=== PATIENT | female | born 1980 | race Caucasian/White ===

== ENCOUNTER → 2016-09-27 | Outpatient (CLI) | payer OTHER ==
[2016-09-27 14:29] LABS: CH 26.7; CHCM 31.9; HCT 30.1 % (34.0-46.0); HGB 9.6 gm/dL (11.4-16.0); Hypochromasia Moderate; Large Platelets Flag Slight; MCH 26.7 pg (25.0-35.0); MCHC 31.8 g/dL (31.0-37.0); MCV 84.1 fL (80.0-100.0); Mean Platelet Volume 10.9; Poikilocytosis Slight; RBC 3.58 m/uL (3.80-5.40); RDW 12.9 % (11.5-15.5)
== END | disposition home or self-care (01) ==
LOC: LABWHC1 13:09
PROVIDERS: ATTEND Obstetrics & Gynecology
DX: Z3A.00 Weeks of gestation of pregnancy not specified (principal); Z34.92 Encounter for supervision of normal pregnancy, unspecified, second trimester
CPT/HCPCS: 36415; 82950; 84439; 84443; 85027; 86850

== ENCOUNTER → 2016-10-24 | Outpatient (CLI) | payer OTHER ==
--- NOTE | 2016-10-24 14:47 | US ---
EXAMINATION TYPE: US OB >= 14 wk fetus DATE OF EXAM: 10/24/2016 2:09 PM COMPARISON: prior at [place] for high risk due to pt age 36 CLINICAL HISTORY: 3rd Trimester Large for dates O36.63X0 dr exam pt measures 2 weeks ahead TECHNIQUE: Transabdominal (TA) GESTATIONAL AGE / DATING Physician Established: (32 weeks/2 days) EDC: 12/17/2016 Dates by LMP: (32 weeks/ days) EDC: 12/17/2016 Dates by First Scan: unsure Dates by Current Scan: (34 weeks/6 days) EDC: 11/29/2016 SURVEY IUP: Single PLACENTA: Posterior PREVIA: no DELIA: 18.4 cm Normal CERVICAL LENGTH (transabdominal: norm > 3.0cm): 4.5 cm BIOMETRY PRESENTATION: Vertex LIE: Longitudinal BPD: 8.8 cm 35 weeks / 4 days HC: 30.4 cm 33 weeks / 6 days AC: 31.1 cm 35 weeks / 1 days FL: 6.7 cm 34 weeks / 4 days ESTIMATED WEIGHT IN GRAMS: 2519 grams ESTIMATED WEIGHT IN LBS/OZS: 5 lbs. 9 oz. WEIGHT PERCENTAGE BASED ON ESTABLISHED DATES: 98 % HC/AC: 0.98 Normal FL/AC: 22 Normal HEART RATE: 158 bpm RHYTHM: Normal TECHNOLOGIST IMPRESSION: viable IUP , age 2 weeks ahead Four Chamber Heart Outflow tracts:? LVOT/RVOT Stomach Situs Nose / Lips Diaphragm Kidneys (bilateral) Bladder Cord Insert Three Vessel Cord Longitudinal Spine Transverse Spine Arms (bilateral) Legs (bilateral) ANATOMY NOT SEEN: ANATOMY SEEN (within normal limits): * Lateral Vent (< 1 cm) * Cisterna Magna (< 1.1 cm) * Nuchal Fold (< 0.6 cm) * Cerebellum (varies with age) Choroid Plexus (bilateral) Midline Falx Cavus Septi Pellucidi IMPRESSION: [place] fetus present in a vertex lie with a gestational age of 34 weeks 6 days +/- 3 weeks. This i s discordant with the patient's last menstrual cycle by 2 weeks. Estimated date of confinement based on this examination is 11/29/2016. Please note that the morphologic examination is limited.
== END | disposition home or self-care (01) ==
LOC: RADUSWWP 13:23
PROVIDERS: ATTEND Obstetrics & Gynecology
DX: O36.63X0 Maternal care for excessive fetal growth, third trimester, not applicable or unspecified (principal); Z3A.34 34 weeks gestation of pregnancy
CPT/HCPCS: 76811

== ENCOUNTER → 2016-11-19 | Outpatient (CLI) | payer OTHER ==
--- NOTE | 2016-11-19 15:41 | US ---
EXAMINATION TYPE: US OB anatomy transabd DATE OF EXAM: 11/19/2016 2:12 PM COMPARISON: US on PACS HISTORY: 36-year-old female LGA TECHNIQUE: Transabdominal (TA) EXAM MEASUREMENTS: GESTATIONAL AGE / DATING Physician Established: (36 weeks/0 days) EDC: 12/17/2016 Dates by LMP: (36 weeks/0 days) EDC: 12/17/2016 Dates by First Scan: (38 weeks/4 days) EDC: 11/29/2016 Dates by Current Scan for: (39 weeks/2 days) EDC: 11/24/2016 SURVEY IUP: Single PLACENTA: Posterior PREVIA: No previa DELIA: 12.0 cm Normal CERVICAL LENGTH (transabdominal: norm > 3.0cm): 4.3 cm BIOMETRY PRESENTATION: Vertex BPD: 9.5 cm 38 weeks / 6 days HC: 33.7 cm 38 weeks / 5 days AC: 36.8 cm 40 weeks / 6 days FL: 7.5 cm 38 weeks / 3 days ESTIMATED WEIGHT IN GRAMS: 3877 grams ESTIMATED WEIGHT IN LBS/OZS: 8 lbs. 9 oz. WEIGHT PERCENTAGE BASED ON ESTABLISHED DATE: 98 % (vs 98% on prior exam) HC/AC: 0.92 (0.93 - 1.11) FL/AC: 20% HEART RATE: 138 bpm RHYTHM: Normal ANATOMY SEEN (within normal limits): Four Chamber Heart Stomach Situs Nose / Lips Diaphragm Kidneys (bilateral) Bladder Three Vessel Cord ANATOMY NOT SEEN or SUBOPTIMALLY VISUALIZED (due to crowding): Lateral Vent (< 1 cm) Cisterna Magna (< 1.1 cm) cm Cerebellum (varies with age) cm Choroid Plexus (bilateral) Midline Falx Cavus Septi Pellucidi Cord Insert Arms (bilateral) Legs (bilateral) Outflow tracts: LVOT/RVOT Longitudinal Spine Transverse Spine TECHNOLOGIST NOTES: Kirstie SIBLEY at [facility] called with results of baby measuring 39 weeks 2 days. Head s tructures not seen due to head being very low, arms and legs not seen due to crowding. IMPRESSION: 1. Single live intrauterine with estimated gestational age of 36 weeks 0 days by LMP. Curre nt ultrasound biometry remains large (39 weeks 2 days) placing the child at the 98th percentile for w eight. 2. Five days more growth than expected from 10/24/2016 remains within the expected range of error. Pre vious percentile was 98% as well. 3. Continued follow-up as indicated for possible early macrosomia.
== END | disposition home or self-care (01) ==
LOC: RADUSWWP 13:31
PROVIDERS: ATTEND Obstetrics & Gynecology
DX: O36.63X0 Maternal care for excessive fetal growth, third trimester, not applicable or unspecified (principal); Z3A.36 36 weeks gestation of pregnancy
CPT/HCPCS: 76811

== ENCOUNTER 2016-12-04 09:51 | Inpatient (IN) | payer OTHER ==
--- NOTE | 2016-12-03 18:16 | P.HPOB ---
History of Present Illness H&P Date: 12/03/16 Chief Complaint: Scheduled section, family planning This is a 36-year-old female 4 para 3 with an estimated date of confinement of 12/11/2016 based on first trimester ultrasound, estimated gestational age of 39-0/7 weeks, who presents to labor and delivery for primary section with bilateral partial salpingectomy secondary to macrosomia a greater than 95th percentile. Her last ultrasound at approximately 37 weeks gave an estimated weight of 8 lbs. 9 oz. which was greater than 95th percentile. All of her other children were in the 8 pound range at . She does admit to good movement and has been feeling frequent contractions. She does complain of pelvic pressure. labs: HIV-nonreactive Random glucose-82 Hepatitis B surface antigen-negative Hemoglobin-12.6 Syphilis antibody-negative Rubella-nonimmune Blood type-O- Antibody screen-negative RhoGAM was given at 30 weeks. GC/chlamydia-negative Gary screen-within normal limits One hour Glucola-122 Group B streptococcus-negative Obstetrical history: . History of 3 vaginal deliveries. Gynecologic history: No history of sexual transmitted diseases. Social history: She is . She is not involved with the father of the baby. 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 Review of Systems Gastrointestinal: Reports abdominal pain (Irregular contractions) Genitourinary: Reports pelvic pain, Reports Past Medical History Past Medical History: Thyroid Disorder (Hypothyroidism) Additional Past Medical History / Comment(s): Fibromyalgia, history of endometriosis Additional Past Surgical History / Comment(s): Laparoscopy with ablation of endometriosis, facial surgery Past Psychological History: No Psychological Hx Reported Smoking Status: Never smoker Past Alcohol Use History: None Reported Past Drug Use History: None Reported - Past Family History Father Family Medical History: Cancer (Brain cancer, melanoma), Hypertension Medications and Allergies Home Medications Medication Instructions Recorded Confirmed Type Levothyroxine Sodium [Synthroid] 50 mcg PO DAILY 12/03/16 12/03/16 History Pnv with Ca,No.72/Iron/FA 1 each PO 12/03/16 History [ Plus Tablet] Allergies Allergy/AdvReac Type Severity Reaction Status Date / Time acetaminophen AdvReac Rash/Hives Verified 12/03/16 18:12 [From Darvocet-N 100] Penicillins AdvReac Rash/Hives Verified 12/03/16 18:12 povidone-iodine AdvReac Rash/Hives Verified 12/03/16 18:12 [From Betadine] propoxyphene AdvReac Rash/Hives Verified 12/03/16 18:12 [From Darvocet-N 100] soap [From Betadine] AdvReac Rash/Hives Verified 12/03/16 18:12 Exam Osteopathic Statement: *. No significant issues noted on an osteopathic structural exam other than those noted in the History and Physical/Consult. HEENT: Within normal limits Heart: Regular rate and rhythm Lungs: Clear to auscultation bilaterally Abdomen: with fundal height of 40 cm heart tones: 150s by Doppler Cervix exam: 3 cm/70%/-1 station Extremities: Negative Homans Assessment and Plan (1) 39 weeks gestation of Status: Acute (2) macrosomia during in third trimester Status: Acute (3) Family planning Status: Acute Plan: Proceed with primary low transverse section with bilateral partial salpingectomy. I have discussed the risks, benefits, and alternative therapies for the above- mentioned procedure and for both sedation/anesthesia as well as necessary blood products administration, if indicated, as they pertain to this patient. The patient has indicated her understanding and acceptance of the risks and procedures discussed.
[2016-12-04] MEDS ORDERED: CLINDAMYCIN 600 MG in DEXTROSE 5% IN WATER 50 ML IVPB STA ×2 (10:09)
[2016-12-04] MEDS ORDERED: LIDOCAINE 1% 20 ML VIAL (10MG/ML) FOR IV START INTRADERMA PRN (10:09)
[2016-12-04] MEDS ORDERED: CITRIC ACID-SODIUM CITRATE 15 ML CUP PO ONE (10:09)
[2016-12-04] MEDS ORDERED: LACTATED RINGERS 1,000 ML IV ONE (10:09)
[2016-12-04 11:12] VITALS: BMI 27.2
[2016-12-04 11:14] LABS: Basophils % (A) 0 %; CH 22.1; CHCM 30.1; Eosinophils # (A) 0.1 k/uL (0-0.7); Eosinophils % (A) 1 %; HDW 3.99; HGB 9.4 gm/dL (11.4-16.0); Hypochromasia Marked; Large Platelets Flag Moderate; Luc # (Auto) 0.22; Luc % (Auto) 3; Lymphocytes # (A) 1.3 k/uL (1.0-4.8); Lymphocytes % (A) 20 %; MCH 23.1 pg (25.0-35.0); MCHC 31.2 g/dL (31.0-37.0); Mean Platelet Volume 11.3; Microcytosis Slight; Monocytes # (A) 0.4 k/uL (0-1.0); Monocytes % (A) 6 %; Neutrophils # (A) 4.5 k/uL (1.3-7.7); Neutrophils % (A) 69 %; Poikilocytosis Slight; RBC 4.06 m/uL (3.80-5.40); RDW 15.6 % (11.5-15.5); WBC 6.5 k/uL (3.8-10.6); WBC (Perox) 6.63
[2016-12-04 11:20] LABS: MCV 73.8 fL (80.0-100.0)
[2016-12-04 11:51] LABS: Large Platelets Present; Manual Review Performed
[2016-12-04 11:52] LABS: Polychromasia Present
[2016-12-04] MEDS ORDERED: KETOROLAC 30 MG/ML 1 ML VIAL ONE (12:16)
[2016-12-04] MEDS ORDERED: MORPHINE SULFATE (PF) 0.3 MG/0.3 ML SYR ONE (12:16)
[2016-12-04] MEDS ORDERED: OXYTOCIN 10 UNIT/ML 1 ML VIAL IM ONE (12:16)
[2016-12-04] MEDS ORDERED: ePHEDrine 50 MG/ML 1 ML AMP ONE (12:16)
[2016-12-04] MEDS ORDERED: NALBUPHINE 10 MG/ML AMPUL ONE (12:16)
[2016-12-04] MEDS ORDERED: ONDANSETRON 4 MG/2 ML VIAL ONE (12:16)
[2016-12-04] MEDS ORDERED: MORPHINE SULFATE 4 MG/ML SYRINGE IVP PRN (12:47)
[2016-12-04] MEDS ORDERED: ONDANSETRON 4 MG/2 ML VIAL IVP PRN (12:47)
[2016-12-04] MEDS ORDERED: diphenhydrAMINE 50 MG/ML 1 ML VIAL IVP PRN ×3 (12:47→13:54)
[2016-12-04] MEDS ORDERED: NALOXONE 0.4 MG/ML 1 ML VIAL IV PRN (12:47)
--- NOTE | 2016-12-04 13:14 | P.OP ---
Date of Procedure: 12/04/16 Preoperative Diagnosis: 1. Intrauterine at 39-0/7 weeks. 2. macrosomia. 3. Family-planning. Postoperative Diagnosis: Same Procedure(s) Performed: Primary low transverse section with bilateral partial salpingectomy Anesthesia: spinal (Duramorph) Surgeon: Nazia Mahmood [employer] #1: Lucila Helm Estimated Blood Loss (ml): 600 Pathology: other (Placenta, portions of right and left fallopian tubes) Condition: stable Disposition: floor Indications for Procedure: This is a 36-year-old female 4 para 3 at 39-0/7 weeks who presents for scheduled primary section secondary to macrosomia and bilateral partial salpingectomy for family planning. Please see history and physical for details of admission. Operative Findings: A viable female is noted in the vertex presentation with scores of 9 at 1 minute and 9 at 5 minutes and weight of 9 lbs. 14 oz. Normal uterus tubes and ovaries are noted. Description of Procedure: The patient is taken to the operating room where she is placed in the dorsal supine position with leftward tilt after spinal Duramorph anesthesia is given. She is prepped and draped in the normal sterile fashion. Skin was tested and found to be adequately anesthetized. A Pfannenstiel skin incision was made with a scalpel. A second knife was used to carry the incision down to the underlying layer of fascia. The fascia was nicked in the midline with a scalpel and then extended laterally bilaterally with Ballesteros scissors. The anterior lip of the fascia was grasped with 2 Leroy clamps and then dissected off the underlying rectus muscle in the midline with Ballesteros scissors. The inferior aspect of the fascial incision was grasped with 2 Leroy clamps and dissected off the underlying rectus muscle and the midline with Ballesteros scissors. Next the peritoneum layer was tented up with 2 hemostats and then entered sharply with the scalpel. The incision is extended superiorly and inferiorly with Metzenbaum scissors. Next a DeLee retractor is placed. The vesicouterine peritoneum is entered sharply with Metzenbaum scissors and extended laterally bilaterally with Metzenbaum scissors and then the bladder flap is pushed inferiorly. The lower uterine segment is incised in transverse fashion with the scalpel and then bluntly entered with a hemostat. Clear fluid is noted. The incision was then extended laterally bilaterally with 2 fingers. Next the 's head is delivered through the incision. Nose and mouth are bulb suctioned. The remainder of the infant is easily delivered and placed on mother 's abdomen. Cord is clamped and cut. Infant is taken to warmer by nursing staff. Cord blood is obtained. Uterine fundus is gently massaged and placenta is delivered manually. Uterus is exteriorized and cleared of all clots and debris. Uterine incision is closed with 0 Vicryl suture in a running locked fashion. A second layer of 0 Vicryl suture is used in a running fashion for hemostasis. Once adequate hemostasis as assured, the vesicouterine peritoneum is reapproximated with 2-0 Vicryl suture in a running fashion. Attention is turned to the tubes. The right fallopian tube was grasped in the midportion with a hemostat. Mesosalpinx is entered with Bovie cautery. Next 0 Vicryl suture is tied to tams around both the proximal and distal portion of the tube. The knuckle of the tube was then removed with Metzenbaum scissors. The ends of the tube are cauterized with Bovie cautery. Excellent hemostasis is noted. The same procedure is carried out on the left fallopian tube. Posterior cul-de- sac is suctioned of all clots and debris. Uterus is returned to the abdomen. Incision is noted to be hemostatic as well as the tubal ends. Peritoneal layer is closed with 0 Vicryl suture in a running fashion. Muscle layer is reapproximated with 0 Vicryl suture in interrupted fashion. Fascia layer is then closed with 0 PDS suture with 2 sutures meeting in the midline and the knots buried in either side and in the midline. The subcutaneous tissue was then closed with 2-0 Vicryl suture. Skin layer was then closed with armani. All sponge and needle counts are correct. The patient is taken to recovery room in stable condition.
[2016-12-04] MEDS ORDERED: ACETAMINOPHEN TAB 325 MG TAB PO PRN (13:54)
[2016-12-04] MEDS ORDERED: SIMETHICONE 80 MG CHEWABLE PO PRN (13:54)
[2016-12-04] MEDS ORDERED: diphenhydrAMINE 50 MG CAP PO PRN (13:54)
[2016-12-04] MEDS ORDERED: METOCLOPRAMIDE 5 MG/ML 2 ML VIAL IVP PRN (13:54)
[2016-12-04] MEDS ORDERED: diphenhydrAMINE 25 MG CAP PO PRN (13:54)
[2016-12-04] MEDS ORDERED: Acetaminophen-Codeine 300-30mg TAB PO PRN (13:54)
[2016-12-04] MEDS ORDERED: OXYTOCIN 30 UNITS/500 ML NS 30 UNIT in SALINE 1 500ML.BAG IV SCH (13:54)
[2016-12-04] MEDS ORDERED: ZOLPIDEM 5 MG TAB PO PRN (13:54)
[2016-12-04] MEDS: KETOROLAC 30 MG/ML 1 ML VIAL IVP PRN ×2 (17:56→23:54)
[2016-12-04] MEDS: LACTATED RINGERS 1,000 ML IV SCH ×2 (17:58→21:21)
[2016-12-04] MEDS: SENNOSIDES-DOCUSATE SODIUM 1 EACH TAB PO SCH (21:21)
[2016-12-05] MEDS: KETOROLAC 30 MG/ML 1 ML VIAL IVP PRN ×2 (06:16→12:41)
[2016-12-05 06:52] LABS: Basophils % (A) 0 %; CH 21.9; CHCM 29.5; Eosinophils # (A) 0.1 k/uL (0-0.7); Eosinophils % (A) 1 %; HCT 26.2 % (34.0-46.0); HGB 8.3 gm/dL (11.4-16.0); Hypochromasia Marked; Luc # (Auto) 0.18; Luc % (Auto) 2; Lymphocytes % (A) 13 %; MCH 23.7 pg (25.0-35.0); MCHC 31.7 g/dL (31.0-37.0); MCV 74.8 fL (80.0-100.0); Mean Platelet Volume 10.3; Microcytosis Slight; Monocytes # (A) 0.5 k/uL (0-1.0); Monocytes % (A) 6 %; Neutrophils # (A) 6.3 k/uL (1.3-7.7); Neutrophils % (A) 78 %; Poikilocytosis Slight; RBC 3.51 m/uL (3.80-5.40); RDW 15.7 % (11.5-15.5); WBC (Perox) 8.61
--- NOTE | 2016-12-05 08:19 | P.PN ---
Subjective status post spinal duramorph doing ok; no neuro deficits; no headache Objective - Vital Signs Vital signs: Vital Signs Temp 98.1 F 12/05/16 04:00 Pulse 88 12/05/16 04:00 Resp 15 12/05/16 06:00 BP 120/73 12/05/16 04:00 Pulse Ox 98 12/05/16 06:00 Intake & Output 12/04/16 12/05/16 12/05/16 18:59 06:59 18:59 Intake Total 2500 1000 Output Total 550 1600 Balance 1950 -600 Weight 86.183 kg Intake: IV 2500 Lactated Ringers 1,000 ml 2500 @ 125 mls/hr IV .Q8H IJN Rx#:[id number] Intake, IV Titration 1000 Amount Lactated Ringers 1,000 ml 1000 @ 125 mls/hr IV .Q8H JIN Rx#:[id number] Output: Urine 550 1600 Uretheral (Valentino) 300 Other: Voiding Method Indwelling Catheter # Voids 1 - Labs CBC & Chem 7: 12/05/16 06:38 Labs: Abnormal Lab Results - Last 24 Hours (Table) 12/04/16 12/05/16 Range/Units 10:46 06:38 RBC 3.51 L (3.80-5.40) m/uL Hgb 9.4 L 8.3 L (11.4-16.0) gm/dL Hct 30.0 L 26.2 L (34.0-46.0) % MCV 73.8 L D 74.8 L (80.0-100.0) fL MCH 23.1 L 23.7 L (25.0-35.0) pg RDW 15.6 H 15.7 H (11.5-15.5) % Plt Count 113 L (150-450) k/uL
[2016-12-05] MEDS: SENNOSIDES-DOCUSATE SODIUM 1 EACH TAB PO SCH ×2 (08:21→22:10)
--- NOTE | 2016-12-05 08:43 | P.PNOBGPC ---
Subjective - Subjective Principal diagnosis: Status post primary section with tubal ligation POD #1 Interval history: Patient is doing well. She is ambulating. She is passing flatus but no bowel movement yet. She is tolerating regular diet. Pain is fairly well controlled at this point. Lochia is decreasing. Patient reports: Reports appetite normal, Reports voiding normally, Reports pain well controlled, Reports ambulating normally : doing well (Baby is with adoptive parents) Objective - Vital Signs Latest vital signs: Vital Signs Temp Pulse Resp BP Pulse Ox 12/05/16 06:00 15 98 12/05/16 04:00 98.1 F 88 15 120/73 97 12/05/16 02:00 16 98 12/05/16 00:00 98.1 F 85 15 121/76 97 12/04/16 22:00 15 98 12/04/16 20:00 98 F 91 15 127/67 98 12/04/16 17:47 98 12/04/16 17:00 16 98 12/04/16 16:00 97.6 F 81 14 130/87 12/04/16 15:13 90 16 115/75 12/04/16 14:43 82 16 117/82 12/04/16 14:13 80 14 115/74 12/04/16 13:58 89 14 114/70 12/04/16 13:41 82 14 114/70 12/04/16 13:25 85 16 109/61 96 12/04/16 13:13 96.7 F L 80 16 103/56 98 12/04/16 10:05 97.7 F 88 14 122/75 Intake and Output 12/04/16 12/05/16 12/05/16 22:59 06:59 14:59 Intake Total 2500 1000 Output Total 850 1300 Balance 1650 -300 Intake: IV 2500 Lactated Ringers 1,000 ml 2500 @ 125 mls/hr IV .Q8H JIN Rx#:[id number] Intake, IV Titration 1000 Amount Lactated Ringers 1,000 ml 1000 @ 125 mls/hr IV .Q8H JIN Rx#:[id number] Output: Urine 850 1300 Uretheral (Valentino) 300 Other: Voiding Method Indwelling Catheter # Voids 1 - Exam Extremities: Present: normal. Absent: tenderness Abdomen: Present: normal appearance, soft (Positive bowel sounds 4). Absent: distention, tenderness Incision: Present: normal, dry, intact Uterus: Present: normal, firm. Absent: tenderness - Labs Labs: Abnormal Lab Results - Last 24 Hours (Table) 12/04/16 12/05/16 Range/Units 10:46 06:38 RBC 3.51 L (3.80-5.40) m/uL Hgb 9.4 L 8.3 L (11.4-16.0) gm/dL Hct 30.0 L 26.2 L (34.0-46.0) % MCV 73.8 L D 74.8 L (80.0-100.0) fL MCH 23.1 L 23.7 L (25.0-35.0) pg RDW 15.6 H 15.7 H (11.5-15.5) % Plt Count 113 L (150-450) k/uL Assessment and Plan (1) 39 weeks gestation of Narrative/Plan: Impression is status post primary section with bilateral partial salpingectomy postoperative day #1. Plan is to continue with postoperative care today. We'll switch to oral pain medications later today. Current Visit: Yes Status: Acute Code(s): Z3A.39 - 39 WEEKS GESTATION OF SNOMED Code(s): 14037039 (2) macrosomia during in third trimester Current Visit: Yes Status: Acute Code(s): O36.63X0 - MATERNAL CARE FOR EXCESS GROWTH, THIRD TRIMESTER, UNSP SNOMED Code(s): 267765836 (3) Family planning Current Visit: Yes Status: Acute Code(s): Z30.09 - ENCOUNTER FOR OTH GENERAL CNSL AND ADVICE ON CONTRACEPTION SNOMED Code(s): 02705411
[2016-12-05] MEDS: Acetaminophen-Codeine 300-30mg TAB PO PRN ×3 (09:23→22:11)
[2016-12-05] MEDS: IBUPROFEN 600 MG TAB PO PRN (19:04)
[2016-12-05] MEDS: LEVOTHYROXINE 50 MCG TAB PO SCH (19:05)
[2016-12-06] MEDS: IBUPROFEN 600 MG TAB PO PRN ×3 (01:04→18:06)
[2016-12-06] MEDS: Acetaminophen-Codeine 300-30mg TAB PO PRN ×3 (04:16→21:40)
[2016-12-06] MEDS: LEVOTHYROXINE 50 MCG TAB PO SCH (07:48)
[2016-12-06] MEDS: SENNOSIDES-DOCUSATE SODIUM 1 EACH TAB PO SCH ×2 (07:49→23:56)
--- NOTE | 2016-12-06 08:30 | P.PNOBGPC ---
Subjective - Subjective Principal diagnosis: Status post with tubal postoperative day #2 Interval history: Patient is doing okay. She is having a little more pain today than she was yesterday. She is passing flatus but no bowel movement yet. She is ambulatory without difficulty. Lochia is decreasing. Patient reports: Reports appetite normal, Reports voiding normally, Reports pain well controlled, Reports ambulating normally : doing well (With adoptive parents) Objective - Vital Signs Latest vital signs: Vital Signs Temp Pulse Resp BP Pulse Ox 12/05/16 16:00 98.3 F 88 16 113/67 12/05/16 12:00 99 12/05/16 09:00 98.4 F 88 16 116/64 Intake and Output 12/05/16 12/06/16 12/06/16 22:59 06:59 14:59 Other: # Voids 2 1 - Exam Extremities: Present: normal. Absent: tenderness, edema Abdomen: Present: normal appearance, soft. Absent: distention, tenderness Incision: Present: normal, dry, intact. Absent: erythematous Uterus: Present: normal, firm. Absent: tenderness Comments: Extremities show 1+ pitting edema Assessment and Plan (1) 39 weeks gestation of Narrative/Plan: Impression is status post repeat section with bilateral partial esophagectomy postoperative day #2. Plan is to continue with postoperative care and anticipate discharge home tomorrow. Current Visit: Yes Status: Acute Code(s): Z3A.39 - 39 WEEKS GESTATION OF SNOMED Code(s): 12452415 (2) macrosomia during in third trimester Current Visit: Yes Status: Acute Code(s): O36.63X0 - MATERNAL CARE FOR EXCESS GROWTH, THIRD TRIMESTER, UNSP SNOMED Code(s): 851058932 (3) Family planning Current Visit: Yes Status: Acute Code(s): Z30.09 - ENCOUNTER FOR OTH GENERAL CNSL AND ADVICE ON CONTRACEPTION SNOMED Code(s): 25654798
[2016-12-07] MEDS: IBUPROFEN 600 MG TAB PO PRN ×3 (00:10→16:39)
[2016-12-07] MEDS: Acetaminophen-Codeine 300-30mg TAB PO PRN (03:38)
[2016-12-07] MEDS: SENNOSIDES-DOCUSATE SODIUM 1 EACH TAB PO SCH (09:27)
[2016-12-07] MEDS: LEVOTHYROXINE 50 MCG TAB PO SCH (09:28)
[2016-12-07 10:12] VITALS: BP 123/81; PULSE 84; RESP 18; TEMP 98.5
--- NOTE | 2016-12-07 11:58 | P.DS ---
Providers Date of admission: 12/04/16 09:51 Expected date of discharge: 12/07/16 Attending physician: Nazia Mahmood Primary care physician: Stated None - Discharge Diagnosis(es) (1) 39 weeks gestation of Current Visit: Yes Status: Acute (2) macrosomia during in third trimester Current Visit: Yes Status: Acute (3) Family planning Current Visit: Yes Status: Acute Hospital Course: This is a 36-year-old female 4 para 3 at 39-0/7 weeks who presented for scheduled primary section secondary to macrosomia and she did also undergo a bilateral partial's appendectomy for family planning. She delivered a viable female with scores of 9 at 1 minute and 9 at 5 minutes and weight of 9 lbs. 14 oz. Her postoperative course has been uncomplicated. She is currently postoperative day #3. She is passing flatus and bowel movement. She is urinating without difficulty. Pain is fairly well controlled with ibuprofen and Tylenol 3. Lochia is decreasing. Her baby is up for adoption. Vital signs are stable. Abdomen is soft with fundus firm and nontender. Incision is clean dry and intact with armani in place. Extremities show negative Homans. Impression is status post primary section with bilateral partial esophagectomy postoperative day #3. Plan is to discharge home today. Routine postoperative instructions are given. [place] will be removed and Steri-Strips placed prior to discharge. She will be given perceptions for ibuprofen and Tylenol 3. She is advised to continue taking her vitamin and iron. She is advised to follow up in the office in 1 week for postoperative check and in 6 weeks for check. She is advised to call the office if she has any further questions or concerns prior to her appointment time. Procedures: Primary low transverse section with bilateral partial salpingectomy on 12/04/2016. Patient Condition at Discharge: Stable Plan - Discharge Summary New Discharge Prescriptions: Acetaminophen-Codeine 300-30mg [Tylenol w/codeine #3] 1 each PO Q4HR PRN #30 tab PRN Reason: Mild Pain Ibuprofen [Motrin] 600 mg PO Q6HR PRN #60 tab PRN Reason: Mild Pain Or Fever >= 100.5 Discharge Medication List Levothyroxine Sodium [Synthroid] 50 mcg PO DAILY 12/03/16 [History] Pnv with Ca,No.72/Iron/FA [ Plus Tablet] 1 each PO 12/03/16 [History] Acetaminophen-Codeine 300-30mg [Tylenol w/codeine #3] 1 each PO Q4HR PRN #30 tab 12/07/16 [Rx] Ibuprofen [Motrin] 600 mg PO Q6HR PRN #60 tab 12/07/16 [Rx] Follow up Appointment(s)/Referral(s): Nazia Mahmood DO [Doctor of Osteopathic Medicine] - 1 Week (Postoperative check in 1 week 6 weeks check) Activity/Diet/Wound Care/Special Instructions: Instructions 1. Do not begin any exercise program for 3 weeks. 2. Do not resume sexual relations for 3 weeks or longer if uncomfortable. 3. You may take tub baths or showers at any time. 4. You may use tampons if desired after 3 weeks. 5. Keep the area of episiotomy (stitches) clean and dry. 6. If you are not nursing, wear a good fitting, supportive bra during the day and limit fluid intake for at least 1 week to prevent breast engorgement. 7. Call the office, [phone], within the next week to make appointment for your 6 week checkup if it has not already been made. 8. Report any of the following occurrences to the doctor promptly: a. Heavy, excessive bleeding b. Chills, fever c. Burning or frequency of urination d. Pain or redness and breasts if nursing e. Increasing pain or swelling in episiotomy (stitches). In addition to the above instructions, the following additional should be followed: 1. No heavy lifting or straining (exercising) until after 6 week checkup. 2. Keep abdominal incision clean and dry: You may wear a dressing if more comfortable. 3. Make office appointment for 10 days after going home or as instructed by her doctor. Discharge Disposition: HOME SELF-CARE
== END 2016-12-07 16:45 | disposition home or self-care (01) | DRG 766 ==
LOC: 4FBP 09:51
PROVIDERS: ADMIT Obstetrics & Gynecology; ATTEND Obstetrics & Gynecology
PROC: 0UB70ZZ Excision of Bilateral Fallopian Tubes, Open Approach (ICD-10-PCS; principal; 2016-12-04 12:00)
PROC: 10D00Z1 Extraction of Products of Conception, Low, Open Approach (ICD-10-PCS; principal; 2016-12-04 12:00)
DX: O36.63X0 Maternal care for excessive fetal growth, third trimester, not applicable or unspecified (principal); E03.9 Hypothyroidism, unspecified; Z37.0 Single live birth; O99.284 Endocrine, nutritional and metabolic diseases complicating childbirth; Z3A.39 39 weeks gestation of pregnancy; Z79.899 Other long term (current) drug therapy; Z88.5 Allergy status to narcotic agent; Z88.0 Allergy status to penicillin; Z30.2 Encounter for sterilization
CPT/HCPCS: 85025; 86850; 86870; 86880; 86885; 86900; 86901; 88302; 88307

== ENCOUNTER → 2016-12-13 | Outpatient (CLI) | payer OTHER ==
[2016-12-13 11:17] LABS: Anisocytosis Slight; CH 22.3; CHCM 29.2; Hypochromasia Marked; MCH 22.6 pg (25.0-35.0); MCHC 29.4 g/dL (31.0-37.0); MCV 76.9 fL (80.0-100.0); Mean Platelet Volume 7.9; Microcytosis Slight; Poikilocytosis Slight; RBC 4.42 m/uL (3.80-5.40); RDW 17.1 % (11.5-15.5); WBC 9.1 k/uL (3.8-10.6)
--- NOTE | 2016-12-13 13:34 | US ---
EXAMINATION TYPE: US pelvis complete transvag DATE OF EXAM: 12/13/2016 11:35 AM COMPARISON: NONE CLINICAL HISTORY: N99.821 Postoperative vaginal bleeding,N99.821. Patient states just having C-sectio n with tubal ligation x 1 weeks ago. Bleeding. Fever last week. TECHNIQUE: Transvaginal (TV) and Transabdominal (TA) Date of LMP: 01/2016 EXAM MEASUREMENTS: Uterus: 15.6 x 11.5 x 7.6 cm Endometrial Stripe: 2.0 cm There is soft tissue density within the endometrial canal. This may represent hematoma or retained pr oducts of conception. 1. Uterus: Anteverted Area of scanned. Possible heterogenous lesion protruding from ant erior EMANI vs prominent bowel = 2.8 x 6.6 x 1.3 cm 2. Endometrium: Fluid with debris seen. Echogenic areas seen in fundal region with slight shadow, l argest - 0.8 cm. 3. Right Ovary: Obscured by overlying bowel gas 4. Left Ovary: Obscured by overlying bowel gas Spectral, color and waveform doppler imaging shows good arterial and venous flow within the ovaries ; there is no evidence for ovarian torsion. 5. Bilateral Adnexa: wnl, bowel gas seen 6. Posterior cul-de-sac: no free fluid IMPRESSION: HEMATOMA VERSUS RETAINED PRODUCTS OF CONCEPTION.
== END | disposition home or self-care (01) ==
LOC: RADUSWWP 10:35
PROVIDERS: ATTEND Obstetrics & Gynecology
DX: N99.821 Postprocedural hemorrhage of a genitourinary system organ or structure following other procedure (principal); N92.0 Excessive and frequent menstruation with regular cycle; R50.82 Postprocedural fever; Z98.891 History of uterine scar from previous surgery
CPT/HCPCS: 76830; 76856; 85027

== ENCOUNTER → 2018-02-10 | Outpatient (CLI) | payer OTHER ==
--- NOTE | 2018-02-10 11:27 | US ---
EXAMINATION TYPE: US pelvis complete transvag DATE OF EXAM: 02/10/2018 COMPARISON: 12/13/2016 CLINICAL HISTORY: N92.1 Menorrhagia. TECHNIQUE: . Transabdominal sonographic images of the pelvis were acquired. Transvaginal sonographi c images were medically necessary to better assess the following anatomy:vilma ovaries and endometrium Date of LMP: 01/21/2018 EXAM MEASUREMENTS: Uterus: 8.4x3.6x4.6 cm Endometrial Stripe: 0.1 cm Right Ovary: 1.5x1.5x1.3 cm Left Ovary: 2.5x1.6x1.2 cm 1. Uterus: Anteverted small nabothian cyst lower uterine segment hypoechoic 1.9 cm 2. Endometrium: not seen well 3. Right Ovary: 1.9 x 1.7 x 1.7 cm cyst 4. Left Ovary: wnl 5. Bilateral Adnexa: wnl 6. Posterior cul-de-sac: wnl IMPRESSION: 1. 1.9 cm simple right ovarian cyst.
== END ==
LOC: RADUSWWP 10:49
PROVIDERS: ATTEND Obstetrics & Gynecology
DX: N83.201 Unspecified ovarian cyst, right side (principal)
CPT/HCPCS: 76830; 76856

== ENCOUNTER → 2018-10-15 | Outpatient (CLI) | payer OTHER ==
--- NOTE | 2018-10-15 11:17 | US ---
EXAMINATION TYPE: US pelvic complete DATE OF EXAM: 10/15/2018 COMPARISON: US, CT CLINICAL HISTORY: R10.2 Pelvic pain, N92.1 Menorrhagia w/irregular. Patient stated had 2 menstrual cy cles last month lasting nearly entire month ; ; endometriosis; taking oral contraceptives TECHNIQUE: Transvaginal (TV) and Transabdominal (TA) . Transabdominal sonographic images of the pel vis were acquired. Transvaginal sonographic images were medically necessary to better assess the fol lowing anatomy: endometrium Date of LMP: last month and unsure of dates EXAM MEASUREMENTS: Uterus: 11.6 x 6.3 x 3.6 cm Endometrial Stripe: 1.1 cm Right Ovary: 4.4 x 3.7 x 3.4 cm Left Ovary: 3.6 x 2.6 x 2.6 cm 1. Uterus: Anteverted, C section scar is noted in EMANI; small Nabothian cysts seen in Cervix 2. Endometrium: unable to correlate thickness with unknown LMP 3. Right Ovary: couple of follicles with largest cyst = 3.0 x 1.8 x 1.7cm 4. Left Ovary: cyst = 2.5 x 1.8 x 2.1cm Spectral, color and waveform Doppler imaging shows good arterial and venous flow within the ovaries ; there is no evidence for ovarian torsion. 5. Bilateral Adnexa: wnl 6. Posterior cul-de-sac: wnl IMPRESSION: 1. Bilateral ovarian cysts. Follow-up exam in 6 weeks following the next normal menstrual period is r ecommended.
== END | disposition home or self-care (01) ==
LOC: RADUSWWP 09:36
PROVIDERS: ATTEND Obstetrics & Gynecology
DX: N83.202 Unspecified ovarian cyst, left side (principal); N83.201 Unspecified ovarian cyst, right side
CPT/HCPCS: 76830; 76856

== ENCOUNTER → 2018-10-26 | Outpatient (CLI) | payer OTHER ==
--- NOTE | 2018-10-26 11:30 | XR ---
EXAMINATION TYPE: XR knee limited RT DATE OF EXAM: 10/26/2018 COMPARISON: NONE HISTORY: Pain TECHNIQUE: Two views are submitted. FINDINGS: Joint spaces are preserved. Osseous structures are intact. No acute fracture seen. Small amount of fluid in the suprapatellar bursa. IMPRESSION: 1. No acute fracture or dislocation. 2. Small amount of fluid in the suprapatellar bursa. If there is concern for internal derangement of the knee correlate with MRI.
== END | disposition home or self-care (01) ==
LOC: RADXRYALE 11:13
PROVIDERS: ATTEND Internal Medicine
DX: M25.461 Effusion, right knee (principal)

== ENCOUNTER → 2022-09-10 | Outpatient (CLI) | payer OTHER ==
--- NOTE | 2022-09-11 07:39 | MM ---
Reason for Exam: Screening (asymptomatic). Baseline mammogram. Patient History: Menarche at age 12. First Full-Term at age 19. Premenopausal. Mother had breast cancer, age 71. Last menstrual period: 08/20/2022 Risk Values: Rahel 5 year model risk: 1.4%. NCI Lifetime model risk: 17.9%. Prior Study Comparison: Patient's first Mammogram. Tissue Density: There are scattered fibroglandular densities. Findings: Analyzed By CAD. There is no suspicious group of microcalcifications or new suspicious mass in either breast. Overall Assessment: Negative, BI-RAD 1 Management: Screening Mammogram of both breasts in 1 year. A clinical breast exam by your physician is recommended on an annual basis and results should be correlated with mammographic findings. [facility] will attempt to contact patient to return for supplemental views and ultrasound if indicated. Electronically signed and approved by: Preet Ponce DO
== END | disposition home or self-care (01) ==
LOC: RADMAMWWP 08:37
PROVIDERS: ATTEND Obstetrics & Gynecology
DX: Z12.31 Encounter for screening mammogram for malignant neoplasm of breast (principal); Z80.3 Family history of malignant neoplasm of breast
CPT/HCPCS: 77067

== ENCOUNTER → 2023-01-21 | Outpatient (CLI) | payer OTHER ==
--- NOTE | 2023-01-21 15:17 | US ---
EXAMINATION TYPE: US pelvic complete DATE OF EXAM: 01/21/2023 COMPARISON: NONE CLINICAL INDICATION: Female, 42 years old with history of N92.0 EXCESSIVE AND FREQUENT MENSTRUATION W ITH REG; menorrhagia TECHNIQUE: Transabdominal (TA). Transabdominal sonographic images of the pelvis were acquired. EXAM MEASUREMENTS: Uterus: 8.7 x 4.6 x 6.6 cm Endometrial Stripe: .8 cm Right Ovary: 2.0 x 1.2 x 1.2 cm Left Ovary: 2.9 x 1.7 x 2.1 cm 1. Uterus: Anteverted. Nabothian cysts seen. 2. Endometrium: wnl 3. Right Ovary: wnl 4. Left Ovary: Anechoic area 1.4 x 2.2 x 1.6 cm. 5. Bilateral Adnexa: wnl 6. Posterior cul-de-sac: wnl IMPRESSION: A 2.2 cm dominant follicle or functional cyst of the left ovary. Otherwise, no specific abnormality s een.
== END | disposition home or self-care (01) ==
LOC: RADUSWWP 08:57
PROVIDERS: ATTEND Obstetrics & Gynecology
DX: N92.0 Excessive and frequent menstruation with regular cycle (principal); N83.202 Unspecified ovarian cyst, left side
CPT/HCPCS: 76856

== ENCOUNTER → 2023-08-26 | Outpatient (CLI) | payer OTHER ==
--- NOTE | 2023-08-26 17:52 | BD ---
EXAMINATION TYPE: Axial Bone Density DATE OF EXAM: 08/26/2023 CLINICAL HISTORY: 43 years old Female. ICD-10 CODE: OSTEOPENIA M85.80 Height: 69 Weight: 164.2 FRAX RISK QUESTIONS: Alcohol (3 or more units per day): no Family History (Parent hip fracture): no Glucocorticoids (More than 3mos): no (Ex: prednisone, prednisolone, methylprednisolone, dexamethasone, and hydrocortisone). History of Fracture in Adulthood: no Secondary Osteoporosis: 1. Type 1 Diabetes: no 2. Hyperthyroidism: no 3. Menopause before 45: no 4. Malnutrition: no 5. Chronic liver disease: no Rheumatoid Arthritis: yes Current Tobacco Use: no RISK FACTORS HISTORY OF: Surgery to Spine/Hip(right/left)/Wrist (right/left): no MEDICATIONS: Thyroid Medications: synthroid How Lon years Additional History: EXAM MEASUREMENTS: Bone mineral densitometry was performed using the [employer]. Bone mineral density as measured about the Lumbar spine is: ----- L1-L4(G/cm2): 1.057 T Score Values are as follows: ----- L1: -1.3 ----- L2: -0.8 ----- L3: -0.8 ----- L4: -1.2 ----- L1-L4: -1.0 Z Score Values are as follows: ----- L1: -1.7 ----- L2: -1.1 ----- L3: -1.1 ----- L4: -1.5 ----- L1-L4: -1.3 Bone mineral density : baseline Bone mineral density about the R hip (g/cm2): 0.978 Bone mineral density about the L hip (g/cm2): 0.974 T Score values are as follows: -----R Neck: -0.4 -----L Neck: -0.3 -----R Total: -0.2 -----L Total: -0.3 Z Score values are as follows: -----R Neck: -0.1 -----L Neck: 0.1 -----R Total: -0.2 -----L Total: -0.2 Bone mineral density : baseline FRAX%s: The graph provided illustrates a 3.0% chance for a major osteoporotic fx and a 0.1% chance fo r the hips probability for fx in 10 years time. IMPRESSION: Normal (Values between +1 and -1 indicate normal bone mass). However, note that measurements are bor dering on osteopenia in the lumbar spine. Consider repeating this study in 5 years or sooner if there is some new clinical indication. NOTE: T-SCORE=SD OF THE YOUNG ADULT MEAN.
== END | disposition home or self-care (01) ==
LOC: RADBDWWP 09:47
PROVIDERS: ATTEND Family Medicine
DX: M85.88 Other specified disorders of bone density and structure, other site (principal)
CPT/HCPCS: 77080